=== PATIENT | male | born 1985 | race American Indian/Alaskan Native ===

== ENCOUNTER 2018-07-14 18:05 | Emergency (ER) | payer SELFPAY ==
[2018-07-14 18:17] VITALS: BP 125/77
[2018-07-14] MEDS ORDERED: NACL 0.9% 1000 ML 1,000 ML IV ONE ×2 (18:18→19:49)
[2018-07-14 18:34] LABS: Basophils # (Auto) 0.1 K/mm3 (0.0-0.1); Basophils % (Auto) 0.7 % (0.0-1.8); Eosinophils # (Auto) 0.1 K/mm3 (0.0-0.4); Eosinophils % (Auto) 1.4 % (0.0-4.3); Hematocrit 49.1 % (35.5-45.6); Hemoglobin 16.5 gm/dl (11.8-15.2); Lymphocytes # (Auto) 1.2 K/mm3 (1.2-5.4); Lymphocytes % (Auto) 14.9 % (13.4-35.0); Mean Corpuscular HGB Conc 34 % (32-34); Mean Corpuscular Volume 99 fl (84-94); Monocytes # (Auto) 0.5 K/mm3 (0.0-0.8); Platelet Count 137 K/mm3 (140-440); Red Blood Count 4.96 M/mm3 (3.65-5.03); Red Cell Distribution Width 13.6 % (13.2-15.2)
[2018-07-14 18:53] LABS: Alanine Aminotransferase 29 units/L (7-56); BUN/Creatinine Ratio 6; Blood Urea Nitrogen 7 mg/dL (9-20); Calcium 8.7 mg/dL (8.4-10.2); Hemolysis Index 6
[2018-07-14 19:29] LABS: Bilirubin,Urine NEG (Negative); Blood,Urine NEG (Negative); Color,Urine Yellow (Yellow); Mucus,Urine FEW /HPF; Protein,Urine <15 mg/dL mg/dL (Negative); Urobilinogen,Urine < 2.0 mg/dL (<2.0)
[2018-07-14] MEDS ORDERED: ZOFRAN IV ONE (19:49)
[2018-07-14] MEDS ORDERED: TORADOL IV ONE (19:49)
--- NOTE | 2018-07-14 20:14 | Emergency Department Report ---
ED Abdominal Pain HPI - General Chief Complaint: Abdominal Pain Stated Complaint: FOOD POISON Time Seen by Provider: 07/14/18 19:44 Source: patient Mode of arrival: Ambulatory Limitations: No Limitations - History of Present Illness Initial Comments: Patient's a 32-year-old -[place] male who presents for abdominal pain 3 days states woke up with bellyache after eating leftover chicken wings now a lot of abdominal burning generalize right and left lower quadrant symptoms exacerbated by by mouth intake symptoms relieved by nothing tried there is no fever no chills Patient does note mild constipation last bowel movement yesterday red pellets has been no fevers no chills no chest pain or shortness of breath last by mouth intake was this a.m. with 1 episode of nausea and vomiting MD Complaint: abdominal pain Onset/Timin -: days(s) Location: LLQ, RLQ Radiation: LLQ, RLQ Migration to: LLQ Severity: moderate Severity scale (0 -10): 4 Quality: cramping, aching Consistency: intermittent Improves With: nothing Worsens With: eating Associated Symptoms: nausea, vomiting, constipation - Related Data Previous Rx's Medication Instructions Recorded Last Taken Type Dicyclomine [Bentyl] 10 mg PO QID PRN #15 capsule 07/14/18 Unknown Rx Ondansetron [Zofran Odt] 4 mg PO Q8HR PRN #12 tab.rapdis 07/14/18 Unknown Rx Allergies Allergy/AdvReac Type Severity Reaction Status Date / Time No Known Allergies Allergy Unverified 07/14/18 18:17 ED Review of Systems ROS: Stated complaint: FOOD POISON Other details as noted in HPI Constitutional: denies: chills, fever Eyes: denies: eye pain, eye discharge, vision change ENT: denies: ear pain, throat pain Respiratory: denies: cough, shortness of breath, wheezing Cardiovascular: denies: chest pain, palpitations Endocrine: no symptoms reported Gastrointestinal: abdominal pain, nausea, vomiting, constipation. denies: diarrhea Genitourinary: denies: urgency, dysuria, frequency, hematuria, discharge Musculoskeletal: denies: back pain, joint swelling, arthralgia Skin: denies: rash, lesions Neurological: denies: headache, weakness, paresthesias Psychiatric: denies: anxiety, depression Hematological/Lymphatic: denies: easy bleeding, easy bruising ED Past Medical Hx - Past Medical History Previous Medical History?: No - Surgical History Past Surgical History?: No - Social History Smoking Status: Current Every Day Smoker Substance Use Type: Alcohol, Marijuana - Medications Home Medications: Home Medications Medication Instructions Recorded Confirmed Last Taken Type Dicyclomine [Bentyl] 10 mg PO QID PRN #15 capsule 07/14/18 Unknown Rx Ondansetron [Zofran Odt] 4 mg PO Q8HR PRN #12 tab.rapdis 07/14/18 Unknown Rx ED Physical Exam - General Limitations: No Limitations General appearance: alert, in no apparent distress - Head Head exam: Present: atraumatic, normocephalic - Eye Eye exam: Present: normal appearance, PERRL, EOMI - ENT ENT exam: Present: normal exam, mucous membranes moist - Neck Neck exam: Present: normal inspection, full ROM. Absent: tenderness, lymphadenopathy, thyromegaly - Respiratory Respiratory exam: Present: normal lung sounds bilaterally. Absent: respiratory distress, wheezes, stridor, chest wall tenderness - Cardiovascular Cardiovascular Exam: Present: regular rate, normal rhythm, normal heart sounds. Absent: systolic murmur, diastolic murmur, rubs, gallop - GI/Abdominal GI/Abdominal exam: Present: distended (mildley firm LLQ no rebound ), normal bowel sounds. Absent: tenderness, guarding, rebound, rigid, organomegaly, mass, bruit, hernia - Rectal Rectal exam: Present: deferred - Extremities Exam Extremities exam: Present: normal inspection, full ROM - Back Exam Back exam: Present: normal inspection, full ROM. Absent: tenderness, CVA tenderness (R), CVA tenderness (L), muscle spasm, rash noted - Neurological Exam Neurological exam: Present: alert, oriented X3, CN II-XII intact, normal gait - Psychiatric Psychiatric exam: Present: normal affect, normal mood - Skin Skin exam: Present: warm, dry, intact, normal color. Absent: rash ED Course Vital Signs 07/14/18 18:14 Temperature 98.6 F Pulse Rate 64 Respiratory 20 Rate Blood Pressure 125/77 O2 Sat by Pulse 98 Oximetry ED Medical Decision Making - Lab Data Result diagrams: 07/14/18 18:23 07/14/18 18:23 Labs 07/14/18 07/14/18 07/14/18 18:23 18:23 18:46 WBC 7.9 RBC 4.96 Hgb 16.5 H Hct 49.1 H MCV 99 H MCH 33 H MCHC 34 RDW 13.6 Plt Count 137 L Lymph % (Auto) 14.9 [place] % (Auto) 7.0 Eos % (Auto) 1.4 Baso % (Auto) 0.7 Lymph # 1.2 [place] # 0.5 Eos # 0.1 Baso # 0.1 Seg Neutrophils % 76.0 H Seg Neutrophils # 6.0 Sodium 138 Potassium 3.9 Chloride 99.6 Carbon Dioxide 30 Anion Gap 12 BUN 7 L Creatinine 1.1 Estimated GFR > 60 BUN/Creatinine Ratio 6 Glucose 90 Calcium 8.7 Total Bilirubin 0.40 AST 33 ALT 29 Alkaline Phosphatase 52 Total Protein 6.6 Albumin 4.0 Albumin/Globulin Ratio 1.5 Lipase 15 Urine Color Yellow Urine Turbidity Clear Urine pH 6.0 Ur Specific [place] 1.016 Urine Protein <15 mg/dl Urine Glucose (UA) Neg Urine Ketones Tr Urine Blood Neg Urine Nitrite Neg Urine Bilirubin Neg Urine Urobilinogen < 2.0 Ur Leukocyte Esterase Neg Urine WBC (Auto) 1.0 Urine RBC (Auto) 1.0 Urine Mucus Few - Radiology Data Radiology results: report reviewed, image reviewed Findings [facility] [address] [place] [address] XRay Report Signed Patient: DEEPA MERAZ MR#: [id number] : 1985 Acct:[id number] Age/Sex: 32 / M ADM Date: 07/14/18 Loc: ED Attending Dr: Ordering Physician: ERIK BOWDEN NP Date of Service: 07/14/18 Procedure(s): XR abdomen 1V ap Accession Number(s): [id number] cc: ERIK BOWDEN NP Fluoro Time In Minutes: FINAL REPORT EXAM: XR ABDOMEN 1V AP HISTORY: abd pain TECHNIQUE: Frontal view of the abdomen and pelvis Comparison: None FINDINGS: The bowel gas pattern is nonobstructive with air in nondistended loops of small bowel and colon. There is no definite evidence of pneumoperitoneum nor organomegaly on this single frontal view. The bony structures are unremarkable. IMPRESSION: 1. No definite plain film evidence of an acute intra-abdominal process on this single frontal view. If there is a clinical concern of an acute intra-abdominal process, CT abdomen and pelvis may be helpful. Transcribed By: ED Dictated By: DUARTE RENEE MD Electronically Authenticated By: DUARTE RENEE MD Signed Date/Time: 07/14/182125 - Medical Decision Making KUB is negative for obstructive gas pattern symptoms relieved with medications given in ED patient tolerating by mouth intake without nausea and vomiting plan DC to home with Zofran and Bentyl when necessary patient will continue to hydrate as directed follow with PCP in 2-3 days return to ED should symptoms worsen or return. Critical care attestation.: If time is entered above; I have spent that time in minutes in the direct care of this critically ill patient, excluding procedure time. ED Disposition Clinical Impression: Nausea & vomiting Qualifiers: Vomiting type: unspecified Vomiting Intractability: non-intractable Qualified Code(s): R11.2 - Nausea with vomiting, unspecified Disposition: DC-01 TO HOME OR SELFCARE Is pt being admited?: No Does the pt Need Aspirin: No Condition: Stable Instructions: Gastroenteritis (ED), Acute Nausea and Vomiting (ED) Prescriptions: Dicyclomine [Bentyl] 10 mg PO QID PRN #15 capsule PRN Reason: Abd cramping Ondansetron [Zofran Odt] 4 mg PO Q8HR PRN #12 tab.rapdis PRN Reason: Nausea And Vomiting Referrals: [facility] [Outside] - 3-5 Days Forms: Work/School Release Form(ED) Time of Disposition: 21:43
--- NOTE | 2018-07-14 21:26 | XRay Report ---
FINAL REPORT EXAM: XR ABDOMEN 1V AP HISTORY: abd pain TECHNIQUE: Frontal view of the abdomen and pelvis Comparison: None FINDINGS: The bowel gas pattern is nonobstructive with air in nondistended loops of small bowel and colon. There is no definite evidence of pneumoperitoneum nor organomegaly on this single frontal view. The bony structures are unremarkable. IMPRESSION: 1. No definite plain film evidence of an acute intra-abdominal process on this single frontal view. If there is a clinical concern of an acute intra-abdominal process, CT abdomen and pelvis may be help ful.
== END 2018-07-14 22:00 | disposition home or self-care (01) ==
LOC: ED 18:05
DX: R11.2 Nausea with vomiting, unspecified (principal); F17.200 Nicotine dependence, unspecified, uncomplicated
CPT/HCPCS: 36415; 74018; 80053; 81001; 83690; 85025; 96361; 96374; 96375; 99284; J1885; J2405; J7030

== ENCOUNTER 2018-07-15 18:32 | Emergency (ER) | payer SELFPAY ==
[2018-07-15] MEDS ORDERED: NACL 0.9% 1000 ML 1,000 ML IV ONE (18:43)
[2018-07-15 19:38] LABS: Basophils % (Auto) 0.9 % (0.0-1.8); Hematocrit 49.8 % (35.5-45.6); Hemoglobin 16.2 gm/dl (11.8-15.2); Lymphocytes # (Auto) 1.4 K/mm3 (1.2-5.4); Lymphocytes % (Auto) 21.6 % (13.4-35.0); Mean Corpuscular HGB Conc 33 % (32-34); Mean Corpuscular Volume 101 fl (84-94); Platelet Count 136 K/mm3 (140-440); Red Blood Count 4.95 M/mm3 (3.65-5.03); Red Cell Distribution Width 13.5 % (13.2-15.2)
[2018-07-15 19:39] LABS: Basophils # (Auto) 0.1 K/mm3 (0.0-0.1); Eosinophils # (Auto) 0.1 K/mm3 (0.0-0.4); Eosinophils % (Auto) 1.5 % (0.0-4.3); Monocytes # (Auto) 0.7 K/mm3 (0.0-0.8)
[2018-07-15 19:50] LABS: Alanine Aminotransferase 27 units/L (7-56); Albumin 3.8 g/dL (3.9-5); BUN/Creatinine Ratio 6; Blood Urea Nitrogen 8 mg/dL (9-20); Hemolysis Index 11
[2018-07-15] MEDS ORDERED: MORPHINE IV ONE (20:50)
[2018-07-15] MEDS ORDERED: ZOFRAN IV ONE (20:50)
[2018-07-15] MEDS ORDERED: PROTONIX IV ONE (20:50)
--- NOTE | 2018-07-15 20:54 | Emergency Department Report ---
ED Abdominal Pain HPI - General Chief Complaint: Abdominal Pain Stated Complaint: CHEST PAIN/STOMACH PAIN Time Seen by Provider: 07/15/18 20:44 Source: patient Mode of arrival: Ambulatory Limitations: No Limitations - History of Present Illness Initial Comments: 32-year-old male with no significant past medical or surgical history presents to the hospital complaining of continued abdominal pain, nausea, vomiting, diarrhea, and by mouth intolerance. Symptoms started 4 days ago after eating chicken. Patient was seen here yesterday for same symptoms. Patient was seen here yesterday for same symptoms. He Had unremarkable labs, urine, abdominal x-ray. He states that the Bentyl makes his heart rates in his abdomen hurt worse. He continues to vomit and could not afford the prescribe Zofran. Patient is tearful complaining of 10/10 pain in the upper abdomen. He is unable to characterize pain. He has noticed a small amount of blood in his recent vomits. He denies melena, hematochezia, fever, travel, or sick contacts. - Related Data Previous Rx's Medication Instructions Recorded Last Taken Type HYDROcodone/APAP 5-325 [[place] 1 each PO Q6HR PRN #15 tablet 07/16/18 Unknown Rx 5/325] Omeprazole Magnesium [PriLOSEC Otc] 20 mg PO DAILY #30 tab 07/16/18 Unknown Rx Promethazine [Phenergan TAB] 25 mg PO Q6HR PRN #20 tab 07/16/18 Unknown Rx Allergies Allergy/AdvReac Type Severity Reaction Status Date / Time No Known Allergies Allergy Verified 07/15/18 18:39 ED Review of Systems ROS: Stated complaint: CHEST PAIN/STOMACH PAIN Other details as noted in HPI Comment: All other systems reviewed and negative ED Past Medical Hx - Past Medical History Previous Medical History?: No - Surgical History Past Surgical History?: No - Social History Smoking Status: Never Smoker Substance Use Type: None - Medications Home Medications: Home Medications Medication Instructions Recorded Confirmed Last Taken Type HYDROcodone/APAP 5-325 [[place] 1 each PO Q6HR PRN #15 tablet 07/16/18 Unknown Rx 5/325] Omeprazole Magnesium [PriLOSEC Otc] 20 mg PO DAILY #30 tab 07/16/18 Unknown Rx Promethazine [Phenergan TAB] 25 mg PO Q6HR PRN #20 tab 07/16/18 Unknown Rx ED Physical Exam - General Limitations: No Limitations - Other Other exam information: General: Distressed admitted pain Head exam: Atraumatic, normocephalic Eyes exam: Normal appearance, pupils equal reactive to light, extraocular movements intact ENT: Moist mucous membrane, normal oropharynx Neck exam: Normal inspection, full range of motion, no meningismus nontender Respiratory exam: Clear to auscultation bilateral, no wheezes, rales, crackles Cardiovascular: Normal rate and rhythm, normal heart sounds Abdomen: Soft, nondistended, epigastric tenderness, with normal bowel sounds, no rebound, or guarding Extremity: Full range of motion normal inspection no deformity Back: Normal Inspection, full range of motion, no tenderness Neurologic: Alert, oriented x3, cranial nerves intact, no motor or sensory deficit Psychiatric: Tearful, crying mood Skin: Warm, dry, intact ED Course Vital Signs 07/15/18 07/15/18 07/15/18 18:40 21:00 21:07 Temperature 98.1 F Pulse Rate 66 64 Respiratory 16 13 20 Rate Blood Pressure 108/78 Blood Pressure 142/86 [Left] O2 Sat by Pulse 100 98 Oximetry 07/15/18 07/16/18 23:00 00:01 Temperature Pulse Rate 50 L Respiratory 12 12 Rate Blood Pressure 119/66 Blood Pressure 116/67 [Left] O2 Sat by Pulse 96 96 Oximetry - Consultations Consultation #1: 07/16/18 00:[address] Cortés client relationship executive GI doctor. pts presentation, results, and CT discussed. Recommends follow-up in the office. ED Medical Decision Making - Lab Data Result diagrams: 07/15/18 18:59 07/15/18 18:59 Lab Results 07/15/18 07/15/18 07/15/18 Range/Units 18:46 18:59 18:59 WBC 6.6 (4.5-11.0) K/mm3 RBC 4.95 (3.65-5.03) M/mm3 Hgb 16.2 H (11.8-15.2) gm/dl Hct 49.8 H (35.5-45.6) % MCV 101 H (84-94) fl MCH 33 H (28-32) pg MCHC 33 (32-34) % RDW 13.5 (13.2-15.2) % Plt Count 136 L (140-440) K/mm3 Lymph % (Auto) 21.6 (13.4-35.0) % Long % (Auto) 10.0 H (0.0-7.3) % Eos % (Auto) 1.5 (0.0-4.3) % Baso % (Auto) 0.9 (0.0-1.8) % Lymph # 1.4 (1.2-5.4) K/mm3 Long # 0.7 (0.0-0.8) K/mm3 Eos # 0.1 (0.0-0.4) K/mm3 Baso # 0.1 (0.0-0.1) K/mm3 Seg Neutrophils % 66.0 (40.0-70.0) % Seg Neutrophils # 4.3 (1.8-7.7) K/mm3 Sodium 138 (137-145) mmol/L Potassium 4.0 (3.6-5.0) mmol/L Chloride 102.4 (98-107) mmol/L Carbon Dioxide 24 (22-30) mmol/L Anion Gap 16 mmol/L BUN 8 L (9-20) mg/dL Creatinine 1.3 (0.8-1.5) mg/dL Estimated GFR > 60 ml/min BUN/Creatinine Ratio 6 % Glucose 101 H (75-100) mg/dL Calcium 9.0 (8.4-10.2) mg/dL Total Bilirubin 0.70 (0.1-1.2) mg/dL AST 33 (5-40) units/L ALT 27 (7-56) units/L Alkaline Phosphatase 54 (35-129) units/L Total Protein 6.7 (6.3-8.2) g/dL Albumin 3.8 L (3.9-5) g/dL Albumin/Globulin Ratio 1.3 % Lipase 31 (13-60) units/L Urine Color (Yellow) Urine Turbidity (Clear) Urine pH (5.0-7.0) Ur Specific [place] (1.003-1.030) Urine Protein (Negative) mg/dL Urine Glucose (UA) (Negative) mg/dL Urine Ketones (Negative) mg/dL Urine Blood (Negative) Urine Nitrite (Negative) Urine Bilirubin (Negative) Urine Urobilinogen (<2.0) mg/dL Ur Leukocyte Esterase (Negative) Urine WBC (Auto) (0.0-6.0) /HPF Urine RBC (Auto) (0.0-6.0) /HPF 07/15/18 Range/Units 22:08 WBC (4.5-11.0) K/mm3 RBC (3.65-5.03) M/mm3 Hgb (11.8-15.2) gm/dl Hct (35.5-45.6) % MCV (84-94) fl MCH (28-32) pg MCHC (32-34) % RDW (13.2-15.2) % Plt Count (140-440) K/mm3 Lymph % (Auto) (13.4-35.0) % Long % (Auto) (0.0-7.3) % Eos % (Auto) (0.0-4.3) % Baso % (Auto) (0.0-1.8) % Lymph # (1.2-5.4) K/mm3 Long # (0.0-0.8) K/mm3 Eos # (0.0-0.4) K/mm3 Baso # (0.0-0.1) K/mm3 Seg Neutrophils % (40.0-70.0) % Seg Neutrophils # (1.8-7.7) K/mm3 Sodium (137-145) mmol/L Potassium (3.6-5.0) mmol/L Chloride (98-107) mmol/L Carbon Dioxide (22-30) mmol/L Anion Gap mmol/L BUN (9-20) mg/dL Creatinine (0.8-1.5) mg/dL Estimated GFR ml/min BUN/Creatinine Ratio % Glucose (75-100) mg/dL Calcium (8.4-10.2) mg/dL Total Bilirubin (0.1-1.2) mg/dL AST (5-40) units/L ALT (7-56) units/L Alkaline Phosphatase (35-129) units/L Total Protein (6.3-8.2) g/dL Albumin (3.9-5) g/dL Albumin/Globulin Ratio % Lipase (13-60) units/L Urine Color Yellow (Yellow) Urine Turbidity Clear (Clear) Urine pH 8.0 H (5.0-7.0) Ur Specific [place] 1.013 (1.003-1.030) Urine Protein <15 mg/dl (Negative) mg/dL Urine Glucose (UA) Neg (Negative) mg/dL Urine Ketones 20 (Negative) mg/dL Urine Blood Neg (Negative) Urine Nitrite Neg (Negative) Urine Bilirubin Neg (Negative) Urine Urobilinogen < 2.0 (<2.0) mg/dL Ur Leukocyte Esterase Neg (Negative) Urine WBC (Auto) < 1.0 (0.0-6.0) /HPF Urine RBC (Auto) 1.0 (0.0-6.0) /HPF - Radiology Data Radiology results: report reviewed FINAL REPORT PROCEDURE: CT ABDOMEN PELVIS W CON TECHNIQUE: Computerized axial tomography of the abdomen and pelvis was performed after the IV injection of iodinated nonionic contrast. HISTORY: abd pain (epigastric) n,v,d COMPARISON: No prior studies are available for comparison. FINDINGS: Liver, spleen, pancreas and adrenal glands are within normal limits. Bilateral kidneys demonstrate normal enhancement without hydronephrosis. Urinary bladder is empty. Aorta is of normal caliber. There is no free air in the peritoneal cavity. Minimal degree of free fluid is noted in the pelvic cavity. There is moderate degree dilatation of 3rd portion duodenum proximal to the superior mesenteric artery. Appendix is normal.. IMPRESSION: Moderately dilated 3rd portion of duodenum proximal to superior mesenteric artery may represent SMA syndrome in the appropriate clinical setting. Clinical correlation is recom mended. - Medical Decision Making Patient feeling much better with ED treatment involving morphine, Zofran, and normal saline. Currently tolerating by mouth prior to discharge. Patient provided good RX card to make his medications more affordable. Follow- up encourage given possibility of SMA syndrome. This was discussed with GI and follow-up advised. Patient will be discharged home with alternative nausea medication, pain meds,, pain meds, and PPI - Differential Diagnosis pancreatitis, PUD, gastroenteritis, appendicitis, food poisoning Critical Care Time: No Critical care attestation.: If time is entered above; I have spent that time in minutes in the direct care of this critically ill patient, excluding procedure time. ED Disposition Clinical Impression: Gastroenteritis, Duodenal disorder Disposition: DC-01 TO HOME OR SELFCARE Is pt being admited?: No Does the pt Need Aspirin: No Condition: Stable Instructions: Gastroenteritis (ED) Additional Instructions: Take the medication as prescribed. Follow up with a primary care doctor and GI specialist. Return if symptoms worsen as indicated by your discharge instructions. It is very important that you follow up with a GI specialist for further investigation of your duodenal abnormality. Use the good RX card provided to make your medications more affordable. Prescriptions: HYDROcodone/APAP 5-325 [[place] 5/325] 1 each PO Q6HR PRN #15 tablet PRN Reason: Pain Omeprazole Magnesium [PriLOSEC Otc] 20 mg PO DAILY #30 tab Promethazine [Phenergan TAB] 25 mg PO Q6HR PRN #20 tab PRN Reason: Nausea Referrals: [facility] [Provider Group] - 3-5 Days (Primary care clinic) JONATHON CORTÉS MD [Staff Physician] - 3-5 Days (GI doctor) WILBUR ADAN DO [Primary Care Provider] - 3-5 Days (Primary care doctor) Time of Disposition: 00:59
[2018-07-15] MEDS ORDERED: D5NS 1,000 ML IV SCH (21:00)
--- NOTE | 2018-07-15 22:54 | Cat Scan Report ---
FINAL REPORT PROCEDURE: CT ABDOMEN PELVIS W CON TECHNIQUE: Computerized axial tomography of the abdomen and pelvis was performed after the IV inject ion of iodinated nonionic contrast. HISTORY: abd pain (epigastric) n,v,d COMPARISON: No prior studies are available for comparison. FINDINGS: Liver, spleen, pancreas and adrenal glands are within normal limits. Bilateral kidneys demonstrate no rmal enhancement without hydronephrosis. Urinary bladder is empty. Aorta is of normal caliber. There is no free air in the peritoneal cavity. Minimal degree of free fluid is noted in the pelvic cavity. There is moderate degree dilatation of 3rd portion duodenum proximal to the superior mesenteric arter y. Appendix is normal.. IMPRESSION: Moderately dilated 3rd portion of duodenum proximal to superior mesenteric artery may represent SMA s yndrome in the appropriate clinical setting. Clinical correlation is recommended.
[2018-07-15 23:02] LABS: Bilirubin,Urine NEG (Negative); Blood,Urine NEG (Negative); Color,Urine Yellow (Yellow); Protein,Urine <15 mg/dL mg/dL (Negative); Urobilinogen,Urine < 2.0 mg/dL (<2.0); WBC,Urine < 1.0 /HPF (0.0-6.0)
[2018-07-16 01:07] VITALS: BP 101/60
== END 2018-07-16 01:15 | disposition home or self-care (01) ==
LOC: ED 18:32
DX: K52.9 Noninfective gastroenteritis and colitis, unspecified (principal); K31.9 Disease of stomach and duodenum, unspecified
CPT/HCPCS: 36415; 74177; 80053; 81001; 83690; 85025; 93005; 93010; 96361; 96374; 96375; 99284; C9113; J2270; J2405; J7042; Q9967

== ENCOUNTER 2018-12-20 14:31 | Emergency (ER) | payer OTHER ==
[2018-12-20 14:51] VITALS: BP 142/84
--- NOTE | 2018-12-20 14:54 | Event Note ---
ED Screening Note Date of service: 12/20/18 Time: 14:50 ED Screening Note: 33 y/o male c/o right knee pain and left foot. Has been able to ambulate. This initial assessment/diagnostic orders/clinical plan/treatment(s) is/are subject to change based on patients health status, clinical progression and re- assessment by fellow clinical providers in the ED. Further treatment and workup at subsequent clinical providers discretion. Patient/guardian urged not to elope from the ED as their condition may be serious if not clinically assessed and managed. Initial orders include:
--- NOTE | 2018-12-20 15:20 | XRay Report ---
RIGHT KNEE: Trauma, pain. The bony architecture is intact without evidence of fracture or dislocation. No significant soft tissue abnormality is seen. There is bandaging around the knee which could obscure subtle soft tissue changes. IMPRESSION: Normal right knee.
[2018-12-20] MEDS ORDERED: IBUPROFEN PO ONE (17:12)
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
== END 2018-12-20 17:27 | disposition home or self-care (01) ==
LOC: ED 14:31
DX: S80.01XA Contusion of right knee, initial encounter (principal); M79.672 Pain in left foot; V18.0XXA Pedal cycle driver injured in noncollision transport accident in nontraffic accident, initial encounter; Y93.89 Activity, other specified; Y92.89 Other specified places as the place of occurrence of the external cause; Y99.8 Other external cause status

== ENCOUNTER 2020-10-07 10:37 | Emergency (ER) | payer SELFPAY ==
[2020-10-07 10:52] VITALS: BP 132/90
--- NOTE | 2020-10-07 11:39 | Event Note ---
ED Screening Note Date of service: 10/07/20 Time: 11:38 ED Screening Note: 34-year-old male presents the emergency department chief complaint of nausea, vomiting, diarrhea and shortness of breath of the past 2 days after taking ecstasy. He went to another ER and was given medication and felt better but reports he lost his prescription. He did ecstasy again and his symptoms. His exam is unremarkable. Abdominal exam is unremarkable with no tenderness to palpation. Lungs are clear and vitals are stable. Return. This initial assessment/diagnostic orders/clinical plan/treatment(s) is/are subject to change based on patients health status, clinical progression and re- assessment by fellow clinical providers in the ED. Further treatment and workup at subsequent clinical providers discretion. Patient/guardian urged not to elope from the ED as their condition may be serious if not clinically assessed and managed. Initial orders include: CBC, CMP, urinalysis, chest x-ray
[2020-10-07 12:29] LABS: Basophils % (Auto) 0.3 % (0.0-1.8); Eosinophils % (Auto) 0.2 % (0.0-4.3); Hematocrit 49.3 % (35.5-45.6); Hemoglobin 16.8 gm/dl (11.8-15.2); Lymphocytes # (Auto) 1.5 K/mm3 (1.2-5.4); Lymphocytes % (Auto) 18.8 % (13.4-35.0); Mean Corpuscular HGB Conc 34 % (32-34); Mean Corpuscular Volume 102 fl (84-94); Monocytes # (Auto) 0.8 K/mm3 (0.0-0.8); Platelet Count 169 K/mm3 (140-440); Red Blood Count 4.85 M/mm3 (3.65-5.03); Red Cell Distribution Width 12.7 % (13.2-15.2)
[2020-10-07 12:45] LABS: Alanine Aminotransferase 26 units/L (7-56); BUN/Creatinine Ratio 8; Blood Urea Nitrogen 10 mg/dL (9-20); Calcium 8.7 mg/dL (8.4-10.2); Hemolysis Index 16
--- NOTE | 2020-10-07 13:04 | XRay Report ---
CHEST 2 VIEWS 1145 INDICATION / CLINICAL INFORMATION: shortness of breath COMPARISON: None available. FINDINGS: SUPPORT DEVICES: None. HEART / MEDIASTINUM: No significant abnormality. LUNGS / PLEURA: No significant pulmonary or pleural abnormality. No pneumothorax. ADDITIONAL FINDINGS: No significant additional findings. IMPRESSION: No significant acute abnormality Signer Name: Kalen Mai MD Signed: 10/07/2020 1:00 PM Workstation Name: [id number]
[2020-10-07 13:31] LABS: Bilirubin,Urine NEG (Negative); Blood,Urine NEG (Negative); Color,Urine Yellow (Yellow); Mucus,Urine 2+ /HPF; Protein,Urine <15 mg/dL mg/dL (Negative); WBC,Urine < 1.0 /HPF (0.0-6.0)
--- NOTE | 2020-10-07 13:41 | Emergency Department Report ---
ED General Adult HPI - General Chief complaint: Upper Respiratory Infection Stated complaint: VOMITING/SOB Time Seen by Provider: 10/07/20 13:21 Source: patient Mode of arrival: Ambulatory Limitations: No Limitations - History of Present Illness Initial comments: 34-year-old male presents the emergency department chief complaint of nausea, vomiting, diarrhea and shortness of breath of the past 2 days after taking ecstasy. He went to another ER and was given medication and felt better but reports he lost his prescription. He did ecstasy again and his symptoms return. He denies any associated fever, chills, night sweats, headache, dizziness, blur ry vision, chest pain, weakness or any other associated symptoms. - Related Data Previous Rx's Medication Instructions Recorded Last Taken Type HYDROcodone/APAP 5-325 [[place] 1 each PO Q6HR PRN #15 tablet 07/16/18 Unknown Rx 5/325] Omeprazole Magnesium [PriLOSEC Otc] 20 mg PO DAILY #30 tab 07/16/18 Unknown Rx Promethazine [Phenergan TAB] 25 mg PO Q6HR PRN #20 tab 07/16/18 Unknown Rx Ondansetron [Zofran Odt] 4 mg PO Q8HR #30 tab.rapdis 10/07/20 Unknown Rx Allergies Allergy/AdvReac Type Severity Reaction Status Date / Time No Known Allergies Allergy Verified 07/15/18 18:39 ED Review of Systems ROS: Stated complaint: VOMITING/SOB Other details as noted in HPI Comment: All other systems reviewed and negative Constitutional: denies: chills, fever Eyes: denies: eye pain, eye discharge, vision change ENT: denies: ear pain, throat pain Respiratory: no symptoms reported, shortness of breath. denies: cough, wheezing Cardiovascular: denies: chest pain, palpitations Endocrine: no symptoms reported Gastrointestinal: as per HPI, nausea, vomiting, diarrhea. denies: abdominal pain Genitourinary: denies: urgency, dysuria Musculoskeletal: denies: back pain, joint swelling, arthralgia Skin: denies: rash, lesions Neurological: denies: headache, weakness, paresthesias Psychiatric: denies: anxiety, depression Hematological/Lymphatic: denies: easy bleeding, easy bruising ED Past Medical Hx - Past Medical History Previous Medical History?: No - Surgical History Past Surgical History?: No - Social History Smoking Status: Current Every Day Smoker Substance Use Type: Alcohol, Marijuana, Other - Medications Home Medications: Home Medications Medication Instructions Recorded Confirmed Last Taken Type HYDROcodone/APAP 5-325 [[place] 1 each PO Q6HR PRN #15 tablet 07/16/18 Unknown Rx 5/325] Omeprazole Magnesium [PriLOSEC Otc] 20 mg PO DAILY #30 tab 07/16/18 Unknown Rx Promethazine [Phenergan TAB] 25 mg PO Q6HR PRN #20 tab 07/16/18 Unknown Rx Ondansetron [Zofran Odt] 4 mg PO Q8HR #30 tab.rapdis 10/07/20 Unknown Rx ED Physical Exam - General Limitations: No Limitations General appearance: alert, in no apparent distress - Head Head exam: Present: atraumatic, normocephalic - Eye Eye exam: Present: normal appearance, PERRL, EOMI Pupils: Absent: normal accommodation - ENT ENT exam: Present: mucous membranes moist. Absent: normal exam, normal orophraynx - Neck Neck exam: Present: normal inspection, tenderness, full ROM. Absent: meningismus - Respiratory Respiratory exam: Present: normal lung sounds bilaterally. Absent: respiratory distress, wheezes, rales, rhonchi, stridor - Cardiovascular Cardiovascular Exam: Present: regular rate, normal rhythm, normal heart sounds. Absent: systolic murmur, diastolic murmur, rubs, gallop - GI/Abdominal GI/Abdominal exam: Present: soft, normal bowel sounds, other (Negative McBurney's point tenderness, negative Parham sign, no rebound or guarding.). Absent: distended, tenderness, guarding, rebound - Rectal Rectal exam: Present: deferred - Extremities Exam Extremities exam: Present: normal inspection, full ROM. Absent: tenderness, calf tenderness (No posterior calf tenderness, negative Homans' sign bilaterally) - Back Exam Back exam: Present: normal inspection, full ROM. Absent: tenderness, CVA tenderness (R), CVA tenderness (L) - Neurological Exam Neurological exam: Present: alert, oriented X3, normal gait - Psychiatric Psychiatric exam: Present: normal affect, normal mood - Skin Skin exam: Present: warm, dry, intact, normal color. Absent: rash ED Course Vital Signs 10/07/20 10:46 Temperature 98.1 F Pulse Rate 60 Respiratory 16 Rate Blood Pressure 132/90 O2 Sat by Pulse 97 Oximetry ED Medical Decision Making - Lab Data Result diagrams: 10/07/20 11:49 10/07/20 11:49 Lab Results 10/07/20 10/07/20 10/07/20 Range/Units 11:49 11:49 Unknown WBC 7.7 (4.5-11.0) K/mm3 RBC 4.85 (3.65-5.03) M/mm3 Hgb 16.8 H (11.8-15.2) gm/dl Hct 49.3 H (35.5-45.6) % MCV 102 H (84-94) fl MCH 35 H (28-32) pg MCHC 34 (32-34) % RDW 12.7 L (13.2-15.2) % Plt Count 169 (140-440) K/mm3 Lymph % (Auto) 18.8 (13.4-35.0) % [place] % (Auto) 10.0 H (0.0-7.3) % Eos % (Auto) 0.2 (0.0-4.3) % Baso % (Auto) 0.3 (0.0-1.8) % Lymph # (Auto) 1.5 (1.2-5.4) K/mm3 [place] # (Auto) 0.8 (0.0-0.8) K/mm3 Eos # (Auto) 0.0 (0.0-0.4) K/mm3 Baso # (Auto) 0.0 (0.0-0.1) K/mm3 Seg Neutrophils % 70.7 H (40.0-70.0) % Seg Neutrophils # 5.5 (1.8-7.7) K/mm3 Sodium 137 (137-145) mmol/L Potassium 4.0 (3.6-5.0) mmol/L Chloride 100.4 (98-107) mmol/L Carbon Dioxide 29 (22-30) mmol/L Anion Gap 12 mmol/L BUN 10 (9-20) mg/dL Creatinine 1.3 (0.8-1.3) mg/dL Estimated GFR > 60 ml/min BUN/Creatinine Ratio 8 % Glucose 103 H (75-100) mg/dL Calcium 8.7 (8.4-10.2) mg/dL Total Bilirubin 0.80 (0.1-1.2) mg/dL AST 36 (5-40) units/L ALT 26 (7-56) units/L Alkaline Phosphatase 48 (35-129) units/L Total Protein 6.9 (6.3-8.2) g/dL Albumin 4.0 (3.9-5) g/dL Albumin/Globulin Ratio 1.4 % Lipase 100 H (13-60) units/L Urine Bilirubin Neg (Negative) Urine RBC (Auto) 1.0 (0.0-6.0) /HPF U Epithel Cells (Auto) 1.0 (0-13.0) /HPF - Medical Decision Making Patient nontoxic in no acute distress. Vital signs are stable. Lab work returned relatively unremarkable. Chest x-ray was unremarkable with no acute findings. He is PERC negative and a low risk by Wells criteria. Suspect this is likely all secondary to ecstasy use and the patient was counseled about illicit drug use and to avoid this to avoid the symptoms in the future. I will send him home with Melody recommended increased hydration and rest and follow-up with primary care doctor tomorrow. Return to the emergency department if develops any change or worsening symptoms. He verbalized understanding of the diagnosis, treatment and follow-up instructions and all his questions were answered. - Differential Diagnosis ingestion, enteritis, URI Critical care attestation.: If time is entered above; I have spent that time in minutes in the direct care of this critically ill patient, excluding procedure time. ED Disposition Clinical Impression: Nausea vomiting and diarrhea, Ecstasy use disorder, mild Disposition: DC-01 TO HOME OR SELFCARE Is pt being admited?: No Condition: Stable Instructions: Nausea, Adult, Diarrhea, Adult Prescriptions: Ondansetron [Zofran Odt] 4 mg PO Q8HR #30 tab.rapdis Referrals: JILL ROWAN MD [Primary Care Provider] - 3-5 Days [facility] [Provider Group] - 3-5 Days ZOE CORDOVA MD [Staff Physician] - 3-5 Days Time of Disposition: 13:41
== END 2020-10-07 14:07 | disposition home or self-care (01) ==
LOC: ED 10:37
DX: F16.10 Hallucinogen abuse, uncomplicated (principal); R11.2 Nausea with vomiting, unspecified; R19.7 Diarrhea, unspecified; F17.200 Nicotine dependence, unspecified, uncomplicated; F12.90 Cannabis use, unspecified, uncomplicated; Z79.899 Other long term (current) drug therapy
CPT/HCPCS: 36415; 71046; 80053; 81001; 83690; 85025

== ENCOUNTER 2021-04-18 17:19 | Emergency (ER) | payer SELFPAY ==
[2021-04-18] MEDS ORDERED: SODIUM CHLORIDE 0.9% 1000 ML 1,000 ML IV ONE (17:43)
[2021-04-18] MEDS ORDERED: DICYCLOMINE 20 MG TAB PO ONE (17:43)
[2021-04-18] MEDS ORDERED: METOCLOPRAMIDE 10 MG/2 ML INJ IV ONE (17:43)
[2021-04-18] MEDS ORDERED: ONDANSETRON 4 MG/2 ML INJ IV ONE (17:43)
[2021-04-18] MEDS ORDERED: FAMOTIDINE 20 MG/2 ML INJ IV ONE (17:43)
[2021-04-18] MEDS ORDERED: diphenhydrAMINE 50 MG/ML VIAL IV ONE (17:43)
--- NOTE | 2021-04-18 18:16 | Emergency Department Report ---
ED Abdominal Pain HPI - General Chief Complaint: Abdominal Pain Stated Complaint: FOOD POISONING Time Seen by Provider: 04/18/21 17:31 Source: patient Mode of arrival: Ambulatory Limitations: No Limitations - History of Present Illness Initial Comments: This is a 35-year-old male nontoxic, well nourished in appearance, no acute signs of distress presents to the ED with c/o of nausea and vomiting and abdominal pain 1 week. Patient describes vomiting as food content and yellow gastric acid. Patient describes abdominal pain as cramping and aching with level of 8/10 diffuse. Patient denies chest pain, short of breath, fever, hemoptysis, blood in stool, chills, headache, stiff neck, numbness or tingling. Patient denies any diarrhea or constipation. Denies any blood in stool. Patient denies any recent travels. Patient denies any drug allergies or significant past medical history MD Complaint: abdominal pain -: week(s) Location: diffuse Radiation: none Migration to: no migration Severity: mild Severity scale (0 -10): 8 Quality: aching Consistency: constant Improves With: nothing Worsens With: nothing Associated Symptoms: nausea, vomiting. denies: diarrhea, fever, chills, constipation, dysuria, hematemesis, hematochezia, melena, hematuria, anorexia, syncope - Related Data Previous Rx's Medication Instructions Recorded Last Taken Type HYDROcodone/APAP 5-325 [[place] 1 each PO Q6HR PRN #15 tablet 07/16/18 Unknown Rx 5/325] Omeprazole Magnesium [PriLOSEC Otc] 20 mg PO DAILY #30 tab 07/16/18 Unknown Rx Promethazine [Phenergan TAB] 25 mg PO Q6HR PRN #20 tab 07/16/18 Unknown Rx Benzonatate [Tessalon Perles] 100 mg PO Q8HR #30 capsule 10/07/20 Unknown Rx Ondansetron [Zofran Odt] 4 mg PO Q8HR #30 tab.rapdis 10/07/20 Unknown Rx Dicyclomine [Bentyl] 20 mg PO BID PRN #12 bottle 04/19/21 Unknown Rx Ondansetron [Zofran Odt] 4 mg PO Q8HR PRN #12 tab.rapdis 04/19/21 Unknown Rx Allergies Allergy/AdvReac Type Severity Reaction Status Date / Time No Known Allergies Allergy Verified 04/18/21 17:24 ED Review of Systems ROS: Stated complaint: FOOD POISONING Other details as noted in HPI Comment: All other systems reviewed and negative Constitutional: denies: chills, fever Eyes: denies: eye pain, eye discharge, vision change ENT: denies: ear pain, throat pain Respiratory: denies: cough, shortness of breath, wheezing Cardiovascular: denies: chest pain, palpitations Endocrine: no symptoms reported Gastrointestinal: abdominal pain, nausea, vomiting. denies: diarrhea, constipation, hematemesis, melena, hematochezia Genitourinary: denies: urgency, dysuria Musculoskeletal: denies: back pain, joint swelling, arthralgia Skin: denies: rash, lesions Neurological: denies: headache, weakness, paresthesias Psychiatric: denies: anxiety, depression Hematological/Lymphatic: denies: easy bleeding, easy bruising ED Past Medical Hx - Past Medical History Previous Medical History?: No - Surgical History Past Surgical History?: No - Social History Smoking Status: Current Every Day Smoker Substance Use Type: Alcohol, Marijuana, Other - Medications Home Medications: Home Medications Medication Instructions Recorded Confirmed Last Taken Type HYDROcodone/APAP 5-325 [[place] 1 each PO Q6HR PRN #15 tablet 07/16/18 Unknown Rx 5/325] Omeprazole Magnesium [PriLOSEC Otc] 20 mg PO DAILY #30 tab 07/16/18 Unknown Rx Promethazine [Phenergan TAB] 25 mg PO Q6HR PRN #20 tab 07/16/18 Unknown Rx Benzonatate [Tessalon Perles] 100 mg PO Q8HR #30 capsule 10/07/20 Unknown Rx Ondansetron [Zofran Odt] 4 mg PO Q8HR #30 tab.rapdis 10/07/20 Unknown Rx Dicyclomine [Bentyl] 20 mg PO BID PRN #12 bottle 04/19/21 Unknown Rx Ondansetron [Zofran Odt] 4 mg PO Q8HR PRN #12 tab.rapdis 04/19/21 Unknown Rx ED Physical Exam - General Limitations: No Limitations General appearance: alert, in no apparent distress - Head Head exam: Present: atraumatic, normocephalic - Eye Eye exam: Present: normal appearance - ENT ENT exam: Present: normal exam - Neck Neck exam: Present: normal inspection, full ROM. Absent: lymphadenopathy - Respiratory Respiratory exam: Present: normal lung sounds bilaterally. Absent: respiratory distress, wheezes, rales, rhonchi, stridor, chest wall tenderness, accessory muscle use, decreased breath sounds, prolonged expiratory - Cardiovascular Cardiovascular Exam: Present: regular rate, normal rhythm, normal heart sounds. Absent: bradycardia, tachycardia, irregular rhythm, systolic murmur, diastolic murmur, rubs, gallop - GI/Abdominal GI/Abdominal exam: Present: soft, tenderness (diffuse), normal bowel sounds. Absent: distended, guarding, rebound, rigid - Extremities Exam Extremities exam: Present: normal inspection, full ROM - Back Exam Back exam: Present: normal inspection, full ROM. Absent: tenderness, CVA tenderness (R), CVA tenderness (L), muscle spasm, paraspinal tenderness, vertebral tenderness, rash noted - Neurological Exam Neurological exam: Present: alert, oriented X3, normal gait - Psychiatric Psychiatric exam: Present: normal affect, normal mood - Skin Skin exam: Present: warm, dry, intact, normal color. Absent: rash ED Course Vital Signs 04/18/21 04/18/21 04/18/21 17:29 20:17 20:31 Temperature 97.8 F Pulse Rate 67 71 59 L Respiratory 24 23 20 Rate Blood Pressure 147/100 164/108 O2 Sat by Pulse 96 96 Oximetry 04/18/21 04/18/21 04/18/21 20:45 21:21 21:43 Temperature Pulse Rate 58 L 56 L Respiratory 21 21 Rate Blood Pressure 164/108 154/103 O2 Sat by Pulse 97 Oximetry 04/18/21 04/18/21 04/18/21 21:44 21:45 22:01 Temperature 99.3 F Pulse Rate 57 L 65 Respiratory 22 21 Rate Blood Pressure 154/103 162/97 O2 Sat by Pulse 96 Oximetry 04/18/21 04/18/21 04/18/21 22:15 22:31 22:45 Temperature Pulse Rate 57 L 55 L 58 L Respiratory 21 22 19 Rate Blood Pressure 160/91 158/94 150/88 O2 Sat by Pulse Oximetry 04/18/21 04/18/21 04/19/21 23:33 23:45 00:01 Temperature Pulse Rate 65 66 60 Respiratory 22 12 17 Rate Blood Pressure 150/88 150/88 105/44 O2 Sat by Pulse 96 Oximetry - Reevaluation(s) Reevaluation #1: 04/18/21 18:16 Patient is speaking in full sentences with no signs of distress noted. Reevaluation #2: 04/18/21 22:34 Patient is resting comfortably. No acute signs of distress. Pain is under control. Awaiting for ultrasound. ED Medical Decision Making - Lab Data Result diagrams: 04/18/21 18:03 04/18/21 18:03 Lab Results 04/18/21 04/18/21 04/18/21 Range/Units 18:03 18:03 18:53 WBC 6.2 (4.5-11.0) K/mm3 RBC 4.95 (3.65-5.03) M/mm3 Hgb 16.2 H (11.8-15.2) gm/dl Hct 48.8 H (35.5-45.6) % MCV 99 H (84-94) fl MCH 33 H (28-32) pg MCHC 33 (32-34) % RDW 12.6 L (13.2-15.2) % Plt Count 163 (140-440) K/mm3 Lymph % (Auto) 20.7 (13.4-35.0) % [place] % (Auto) 11.8 H (0.0-7.3) % Eos % (Auto) 0.6 (0.0-4.3) % Baso % (Auto) 0.8 (0.0-1.8) % Lymph # (Auto) 1.3 (1.2-5.4) K/mm3 [place] # (Auto) 0.7 (0.0-0.8) K/mm3 Eos # (Auto) 0.0 (0.0-0.4) K/mm3 Baso # (Auto) 0.1 (0.0-0.1) K/mm3 Seg Neutrophils % 66.1 (40.0-70.0) % Seg Neutrophils # 4.1 (1.8-7.7) K/mm3 Sodium 134 L (137-145) mmol/L Potassium 3.5 L (3.6-5.0) mmol/L Chloride 97.6 L (98-107) mmol/L Carbon Dioxide 24 (22-30) mmol/L Anion Gap 16 mmol/L BUN 14 (9-20) mg/dL Creatinine 1.4 H (0.8-1.3) mg/dL Estimated GFR > 60 ml/min BUN/Creatinine Ratio 10 % Glucose 101 H (75-100) mg/dL Calcium 8.9 (8.4-10.2) mg/dL Total Bilirubin 0.90 (0.1-1.2) mg/dL AST 27 (5-40) units/L ALT 25 (7-56) units/L Alkaline Phosphatase 49 (35-129) units/L Total Protein 7.3 (6.3-8.2) g/dL Albumin 4.1 (3.9-5) g/dL Albumin/Globulin Ratio 1.3 % Lipase 250 H (13-60) units/L Urine Color Yellow (Yellow) Urine Turbidity Slightly-cloudy (Clear) Urine pH 8.0 H (5.0-7.0) Ur Specific [place] 1.014 (1.003-1.030) Urine Protein <15 mg/dl (Negative) mg/dL Urine Glucose (UA) Neg (Negative) mg/dL Urine Ketones 20 (Negative) mg/dL Urine Blood Neg (Negative) Urine Nitrite Neg (Negative) Urine Bilirubin Neg (Negative) Urine Urobilinogen < 2.0 (<2.0) mg/dL Ur Leukocyte Esterase Neg (Negative) Urine WBC (Auto) 4.0 (0.0-6.0) /HPF Urine RBC (Auto) 1.0 (0.0-6.0) /HPF U Epithel Cells (Auto) < 1.0 (0-13.0) /HPF Urine Yeast (Budding) Few /HPF - Radiology Data [facility] [address] [place] [address] Cat Scan Report Signed Patient: DEEPA MERAZ MR#: [id number] : 1985 Acct:[id number] Age/Sex: 35 / M ADM Date: 04/18/21 Loc: ED Attending Dr: Ordering Physician: ANKUR WILL NP Date of Service: 04/18/21 Procedure(s): CT abdomen pelvis w con Accession Number(s): [id number] cc: ANKUR WILL NP CT ABDOMEN AND PELVIS WITH CONTRAST INDICATION / CLINICAL INFORMATION: Unspecified abdominal pain with nausea and vomiting. TECHNIQUE: Axial CT images were obtained through the abdomen and pelvis after IV contrast. All CT scans at this location are performed using CT dose reduction for ALARA by means of a utomated exposure control. COMPARISON: CT abdomen and pelvis with contrast from 07/15/2018. FINDINGS: Motion artifact limits this exam. LOWER CHEST: No significant abnormality. LIVER: No significant abnormality. GALLBLADDER: No significant abnormality. BILE DUCTS: No significant abnormality. PANCREAS: No significant abnormality. SPLEEN: No significant abnormality. ADRENALS: No significant abnormality. KIDNEYS / URETERS: No significant abnormality. STOMACH / SMALL BOWEL: No significant abnormality. COLON: No significant abnormality. APPENDIX: No significant abnormality. PERITONEUM: No free fluid. No free air. No fluid collection. LYMPH NODES: No significant adenopathy. AORTA / ARTERIES: No significant abnormality. IVC / VEINS: No significant abnormality. URINARY BLADDER: No significant abnormality. REPRODUCTIVE ORGANS: No significant abnormality. ADDITIONAL FINDINGS: None. BONES: No significant abnormality. IMPRESSION: 1. No significant abnormality to explain the patient's complaints. Signer Name: Ochoa Figueredo MD Signed: 04/18/2021 9:10 PM Workstation Name: [id number] Transcribed By: MN Dictated By: Ochoa Figueredo MD Electronically Authenticated By: Ochoa Figueredo MD Signed Date/Time: 04/18/212109 DD/ 05 TD/TT: [facility] [address] [place] [address] Ultrasound Report Signed Patient: DEEPA MERAZ MR#: [id number] : 1985 Acct:[id number] Age/Sex: 35 / M ADM Date: 04/18/21 Loc: ED Attending Dr: Ordering Physician: ANKUR WILL NP Date of Service: 04/18/21 Procedure(s): US abdomen limited Accession Number(s): [id number] cc: ANKUR WILL NP ULTRASOUND ABDOMEN, LIMITED (RIGHT UPPER QUADRANT) INDICATION / CLINICAL INFORMATION: upper abd pain with elevated lipase. COMPARISON: None available. FINDINGS: PANCREAS: Visualized portion shows no significant abnormality. LIVER: No significant abnormality. GALLBLADDER: No significant abnormality. BILE DUCTS: No significant abnormality. Common bile duct measures 3 mm. FREE FLUID: None. ADDITIONAL FINDINGS: None. IMPRESSION: 1. No significant sonographic abnormality of the right upper quadrant. Signer Name: Tello Young DO Signed: 04/19/2021 12:27 AM Workstation Name: [id number] Transcribed By: MARQUEZ Dictated By: TELLO YOUNG DO Electronically Authenticated By: TELLO YOUNG DO Signed Date/Time: 04/19/2126 DD/ TD/TT: - Medical Decision Making This is a 35-year-old male that presents with abdominal pain and n/v. Patient is stable and was examined by me. Labs obtained. UA obtained. CT and US of abdomen obtained and dictated by the radiologist. Patient is notified of the report with no questions noted by the patient. Vital signs are stable prior to discharge. Patient received medical treatment in the ED which patient stated symptoms has resovled and subsided. Was instructed note to operate any machinery due to possible drowsiness and stated someone will drive the patient home. A by mouth challenge has been obtained and patient tolerated well with no nausea vomiting. Patient was notified of strict precatuions of appendictis symptoms and to return to the ED if symptoms occurs as soon as possible. Patient was also instructed to Follow-up with a primary care doctor in 3-5 days or if symptoms worsen and continue return to emergency room as soon as possible. At time of discharge, the patient does not seem toxic or ill in appearance. No acute signs of distress noted. Patient agrees to discharge treatment plan of care. No further questions noted by the patient. Critical care attestation.: If time is entered above; I have spent that time in minutes in the direct care of this critically ill patient, excluding procedure time. ED Disposition Clinical Impression: Elevated lipase Abdominal pain Qualifiers: Abdominal location: generalized Qualified Code(s): R10.84 - Generalized ab dominal pain Nausea & vomiting Qualifiers: Vomiting type: unspecified Vomiting Intractability: non-intractable Qualified Code(s): R11.2 - Nausea with vomiting, unspecified Disposition: 01 HOME / SELF CARE / HOMELESS Is pt being admited?: No Does the pt Need Aspirin: No Condition: Stable Instructions: Abdominal Pain, Adult, [id number], Nausea and Vomiting, Adult Additional Instructions: Follow-up with a primary care and the rough patcher doctor in 3-5 days or if symptoms worsen and continue return to emergency room as soon as possible. Prescriptions: Dicyclomine [Bentyl] 20 mg PO BID PRN #12 bottle PRN Reason: abdominal pain Ondansetron [Zofran Odt] 4 mg PO Q8HR PRN #12 tab.rapdis PRN Reason: Nausea Referrals: ZOE CORDOVA MD [Staff Physician] - 3-5 Days PRIMARY CARE, [Primary Care Provider] - 3-5 Days [facility] [Provider Group] - 3-5 Days Forms: Work/School Release Form(ED) Time of Disposition: 00:57
[2021-04-18 18:32] LABS: Basophils # (Auto) 0.1 K/mm3 (0.0-0.1); Basophils % (Auto) 0.8 % (0.0-1.8); Eosinophils % (Auto) 0.6 % (0.0-4.3); Hematocrit 48.8 % (35.5-45.6); Hemoglobin 16.2 gm/dl (11.8-15.2); Lymphocytes # (Auto) 1.3 K/mm3 (1.2-5.4); Lymphocytes % (Auto) 20.7 % (13.4-35.0); Mean Corpuscular HGB Conc 33 % (32-34); Mean Corpuscular Volume 99 fl (84-94); Monocytes # (Auto) 0.7 K/mm3 (0.0-0.8); Monocytes % (Auto) 11.8 % (0.0-7.3); Platelet Count 163 K/mm3 (140-440); Red Blood Count 4.95 M/mm3 (3.65-5.03); Red Cell Distribution Width 12.6 % (13.2-15.2)
[2021-04-18 18:41] LABS: Alanine Aminotransferase 25 units/L (7-56); Albumin 4.1 g/dL (3.9-5); BUN/Creatinine Ratio 10; Blood Urea Nitrogen 14 mg/dL (9-20); Calcium 8.9 mg/dL (8.4-10.2); Hemolysis Index 12
[2021-04-18] MEDS ORDERED: POTASSIUM CHLORIDE ER 20 MEQ TAB PO ONE (18:43)
[2021-04-18 19:13] LABS: Bilirubin,Urine NEG (Negative); Blood,Urine NEG (Negative); Color,Urine Yellow (Yellow); Protein,Urine <15 mg/dL mg/dL (Negative); Urobilinogen,Urine < 2.0 mg/dL (<2.0)
--- NOTE | 2021-04-18 21:14 | Cat Scan Report ---
CT ABDOMEN AND PELVIS WITH CONTRAST INDICATION / CLINICAL INFORMATION: Unspecified abdominal pain with nausea and vomiting. TECHNIQUE: Axial CT images were obtained through the abdomen and pelvis after IV contrast. All CT scans at this location are performed using CT dose reduction for ALARA by means of automated exposure control. COMPARISON: CT abdomen and pelvis with contrast from 07/15/2018. FINDINGS: Motion artifact limits this exam. LOWER CHEST: No significant abnormality. LIVER: No significant abnormality. GALLBLADDER: No significant abnormality. BILE DUCTS: No significant abnormality. PANCREAS: No significant abnormality. SPLEEN: No significant abnormality. ADRENALS: No significant abnormality. KIDNEYS / URETERS: No significant abnormality. STOMACH / SMALL BOWEL: No significant abnormality. COLON: No significant abnormality. APPENDIX: No significant abnormality. PERITONEUM: No free fluid. No free air. No fluid collection. LYMPH NODES: No significant adenopathy. AORTA / ARTERIES: No significant abnormality. IVC / VEINS: No significant abnormality. URINARY BLADDER: No significant abnormality. REPRODUCTIVE ORGANS: No significant abnormality. ADDITIONAL FINDINGS: None. BONES: No significant abnormality. IMPRESSION: 1. No significant abnormality to explain the patient's complaints. Signer Name: Ochoa Figueredo MD Signed: 04/18/2021 9:10 PM Workstation Name: [id number]
--- NOTE | 2021-04-19 00:31 | Ultrasound Report ---
ULTRASOUND ABDOMEN, LIMITED (RIGHT UPPER QUADRANT) INDICATION / CLINICAL INFORMATION: upper abd pain with elevated lipase. COMPARISON: None available. FINDINGS: PANCREAS: Visualized portion shows no significant abnormality. LIVER: No significant abnormality. GALLBLADDER: No significant abnormality. BILE DUCTS: No significant abnormality. Common bile duct measures 3 mm. FREE FLUID: None. ADDITIONAL FINDINGS: None. IMPRESSION: 1. No significant sonographic abnormality of the right upper quadrant. Signer Name: Tello Collins DO Signed: 04/19/2021 12:27 AM Workstation Name: [id number]
[2021-04-19 01:17] VITALS: BP 105/54
== END 2021-04-19 01:20 | disposition home or self-care (01) ==
LOC: ED 17:19
DX: R10.84 Generalized abdominal pain (principal); R11.2 Nausea with vomiting, unspecified; R74.8 Abnormal levels of other serum enzymes; F17.200 Nicotine dependence, unspecified, uncomplicated; F12.90 Cannabis use, unspecified, uncomplicated; Z72.89 Other problems related to lifestyle; Z79.899 Other long term (current) drug therapy
CPT/HCPCS: 36415; 74177; 76705; 80053; 81001; 83690; 85025; 96361; 96374; 96375; 99284; J1200; J2405; J2765; J7030; Q9967

== ENCOUNTER 2021-07-07 12:39 | Emergency (ER) | payer SELFPAY ==
[2021-07-07 13:31] VITALS: BP 159/88
[2021-07-07] MEDS ORDERED: IBUPROFEN 800 MG TAB PO ONE (17:51)
--- NOTE | 2021-07-07 17:53 | Emergency Department Report ---
HPI - General Chief Complaint: Pain General Time Seen by Provider: 07/07/21 17:29 - HPI HPI: MSE 5 The patient is a 35-year-old male present with a chief complaint of right upper back pain. The patient states for 1 month he has had discomfort in his right upper back that worsens with inspiration. Patient admits to occasional shortness of breath because he feels as though he is not getting a full breath. Patient denies history of cough or fever. Patient denies any recent flights or long car trips. Patient currently gets his discomfort a score of 8/10 ED Past Medical Hx - Past Medical History Previous Medical History?: No - Surgical History Past Surgical History?: No - Family History Family history: no significant - Social History Smoking Status: Former Smoker (None x1 year) Substance Use Type: Alcohol (Quit drinking in 2021), Marijuana (Stopped smoking in 2021) - Medications Home Medications: Home Medications Medication Instructions Recorded Confirmed Last Taken Type HYDROcodone/APAP 5-325 [Lamar 1 each PO Q6HR PRN #15 tablet 07/16/18 Unknown Rx 5/325] Omeprazole Magnesium [PriLOSEC Otc] 20 mg PO DAILY #30 tab 07/16/18 Unknown Rx Promethazine [Phenergan TAB] 25 mg PO Q6HR PRN #20 tab 07/16/18 Unknown Rx Benzonatate [Tessalon Perles] 100 mg PO Q8HR #30 capsule 10/07/20 Unknown Rx Ondansetron [Zofran Odt] 4 mg PO Q8HR #30 tab.rapdis 10/07/20 Unknown Rx Dicyclomine [Bentyl] 20 mg PO BID PRN #12 bottle 04/19/21 Unknown Rx Ondansetron [Zofran Odt] 4 mg PO Q8HR PRN #12 tab.rapdis 04/19/21 Unknown Rx Cyclobenzaprine [Flexeril] 10 mg PO TID PRN #14 07/07/21 Unknown Rx Ibuprofen [Motrin 800 MG tab] 800 mg PO Q8HR PRN #20 tablet 07/07/21 Unknown Rx ED Review of Systems ROS: Stated complaint: DIFFICULTY BREATHING Other details as noted in HPI Constitutional: denies: fever Eyes: denies: eye pain ENT: denies: throat pain Respiratory: shortness of breath. denies: cough Cardiovascular: denies: chest pain Endocrine: no symptoms reported Gastrointestinal: denies: abdominal pain Genitourinary: denies: dysuria Musculoskeletal: back pain Neurological: denies: headache Physical Exam - Physical Exam Vital Signs: Vital Signs 07/07/21 13:30 Temperature 98.6 F Pulse Rate 67 Respiratory 20 Rate Blood Pressure 159/88 O2 Sat by Pulse 96 Oximetry Physical Exam: GENERAL: The patient is well-developed well-nourished male lying on stretcher not appearing to be in acute distress. [] HEENT: Normocephalic. Atraumatic. Extraocular motions are intact. Patient has moist mucous membranes. NECK: Supple. Trachea midline CHEST/LUNGS: Clear to auscultation. There is no respiratory distress noted. HEART/CARDIOVASCULAR: Regular. There is no tachycardia. There is no gallop rub or murmur. ABDOMEN: Abdomen is soft, nontender. Patient has normal bowel sounds. There is no abdominal distention. SKIN: There is no erythema or skin changes overlying the right upper back NEURO: The patient is awake, alert, and oriented. The patient is cooperative. The patient has no focal neurologic deficits. The patient has normal speech. GCS 15 MUSCULOSKELETAL: There is no mass or fluctuance palpated overlying the right upper back. There is no evidence of acute injury. ED Course Vital Signs 07/07/21 13:30 Temperature 98.6 F Pulse Rate 67 Respiratory 20 Rate Blood Pressure 159/88 O2 Sat by Pulse 96 Oximetry ED Medical Decision Making - Lab Data Result diagrams: 07/07/21 17:54 07/07/21 17:54 Laboratory Tests 07/07/21 07/07/21 07/07/21 17:54 17:54 17:54 WBC 4.2 L RBC 4.64 Hgb 15.3 H Hct 46.5 H MCV 100 H MCH 33 H MCHC 33 RDW 12.7 L Plt Count 158 Lymph % (Auto) 37.6 H [place] % (Auto) 10.1 H Eos % (Auto) 7.6 H Baso % (Auto) Field Installation Technician Lymph # (Auto) 1.6 [place] # (Auto) 0.4 Eos # (Auto) 0.3 Baso # (Auto) 0.0 Seg Neutrophils % 44.1 Seg Neutrophils # 1.9 D-Dimer 173.39 Sodium 137 Potassium 3.8 Chloride 102.2 Carbon Dioxide 20 L Anion Gap 19 BUN 14 Creatinine 1.1 Estimated GFR > 60 BUN/Creatinine Ratio 13 Glucose 85 Calcium 9.2 - Radiology Data Radiology results: report reviewed (Chest x-ray), image reviewed (Chest x-ray) interpreted by me: Chest x-ray-no definite focal infiltrates, no pneumothorax [facility] [address] [place] [address] XRay Report Signed Patient: DEEPA MERAZ MR#: [id number] : 1985 Acct:[id number] Age/Sex: 35 / M ADM Date: 07/07/21 Loc: ED Attending Dr: Ordering Physician: MICHELLE CORTES MD Date of Service: 07/07/21 Procedure(s): XR chest routine 2V Accession Number(s): [id number] cc: MICHELLE CORTES MD Fluoro Time In Minutes: CHEST 2 VIEWS INDICATION / CLINICAL INFORMATION: Right upper back pain; pleurisy. COMPARISON: 10/07/20. FINDINGS: SUPPORT DEVICES: None. HEART / MEDIASTINUM: The heart size and pulmonary vasculature are normal. The aorta is normal in caliber. LUNGS / PLEURA: No significant pulmonary or pleural abnormality. No pneumothorax. ADDITIONAL FINDINGS: No osseous abnormality is seen. IMPRESSION: No acute abnormality or significant change. Signer Name: Jaden Dc MD Signed: 07/07/2021 7:30 PM Workstation Name: [id number] Transcribed By: RT Dictated By: Jaden Dc MD Electronically Authenticated By: Jaden Dc MD Signed Date/Time: 07/07/211929 DD/ 28 TD/TT: Print Cancel - Differential Diagnosis Myalgia, muscle strain, pleurisy, PE, lung mass Critical care attestation.: If time is entered above; I have spent that time in minutes in the direct care of this critically ill patient, excluding procedure time. ED Disposition Clinical Impression: Back pain Disposition: HOME / SELF CARE / HOMELESS Is pt being admited?: No Does the pt Need Aspirin: No Condition: Stable Instructions: Acute Back Pain, Adult, Pain Without a Known Cause Additional Instructions: Return to the emergency department should you develop worsening symptoms, inability to tolerate food or liquids, high fever or any other concerns Prescriptions: Cyclobenzaprine [Flexeril] 10 mg PO TID PRN #14 PRN Reason: Muscle Spasm Ibuprofen [Motrin 800 MG tab] 800 mg PO Q8HR PRN #20 tablet PRN Reason: Pain, Moderate (4-6) Referrals: PRIMARY CARE, [Primary Care Provider] - 3-5 Days [facility] [Provider Group] - 3-5 Days Time of Disposition: 20:11
[2021-07-07 18:58] LABS: BUN/Creatinine Ratio 13; Blood Urea Nitrogen 14 mg/dL (9-20); Calcium 9.2 mg/dL (8.4-10.2); Hemolysis Index 12
[2021-07-07 19:04] LABS: Eosinophils # (Auto) 0.3 K/mm3 (0.0-0.4); Eosinophils % (Auto) 7.6 % (0.0-4.3); Hematocrit 46.5 % (35.5-45.6); Hemoglobin 15.3 gm/dl (11.8-15.2); Lymphocytes # (Auto) 1.6 K/mm3 (1.2-5.4); Lymphocytes % (Auto) 37.6 % (13.4-35.0); Mean Corpuscular HGB Conc 33 % (32-34); Mean Corpuscular Volume 100 fl (84-94); Monocytes # (Auto) 0.4 K/mm3 (0.0-0.8); Monocytes % (Auto) 10.1 % (0.0-7.3); Platelet Count 158 K/mm3 (140-440); Red Blood Count 4.64 M/mm3 (3.65-5.03); Red Cell Distribution Width 12.7 % (13.2-15.2)
--- NOTE | 2021-07-07 19:34 | XRay Report ---
CHEST 2 VIEWS INDICATION / CLINICAL INFORMATION: Right upper back pain; pleurisy. COMPARISON: 10/07/20. FINDINGS: SUPPORT DEVICES: None. HEART / MEDIASTINUM: The heart size and pulmonary vasculature are normal. The aorta is normal in annelise jackie. LUNGS / PLEURA: No significant pulmonary or pleural abnormality. No pneumothorax. ADDITIONAL FINDINGS: No osseous abnormality is seen. IMPRESSION: No acute abnormality or significant change. Signer Name: Jaden Dc MD Signed: 07/07/2021 7:30 PM Workstation Name: [id number]
== END 2021-07-07 20:12 | disposition home or self-care (01) ==
LOC: ED 12:39
DX: M54.9 Dorsalgia, unspecified (principal); F17.200 Nicotine dependence, unspecified, uncomplicated
CPT/HCPCS: 36415; 71046; 80048; 85025; 85379; 99283